=== PATIENT | male | born 1930 | race Caucasian/White ===

== ENCOUNTER → 2016-11-19 | Outpatient (REF) ==
[~2016-11-19] MED LIST: ALTOPREV20 MG PO; AMBIEN 10MG10 MG PO; ARICEPT10 MG PO; ASPIRIN 32325 MG/TAB PO; BENADRYL25 M2; CELEXA 20MG20 MG/TAB PO; DESYREL 50MG50 MG PO; EPA FISH OIL1000 MG PO; FISH OIL 1000MG1 CAP PO; FLEXERIL 1010 MG/TAB PO; FLOMAX 0.40.4 MG/CAP PO; IMODIUM 2MG CAPS2 MG PO; KLONOPIN 0.5MG0.5 MG PO; LUPRON DEPOT3.75 MG IM; MULTI VITAMINS1 TAB PO; NAMENDA5 MG PO; PAXIL 20MG20 MG PO; POTASSIUM99 MG PO; PRILOSEC 20MG20 MG PO; PRO STAT AWC PO; RISPERDAL 0.20.25 MG PO; TYLENOL 325MG325 MG PO; ULTRAM 50MG TAB50 MG PO; VITAMIN C500 MG PO; ZOFRAN 4MG T4 MG/TAB PO
== END ==
LOC: ZLAB.WCH 13:31
DX: Z01.89 Encounter for other specified special examinations (principal)

== ENCOUNTER → 2017-06-03 | Outpatient (REF) ==
[2017-06-03 18:56] LABS: THYROID STIMULATING HORMONE 1.81 uIU/mL (0.465-4.680)
== END ==
LOC: ZLAB.WCH 18:15
PROVIDERS: Family Medicine
DX: Z01.89 Encounter for other specified special examinations (principal)